=== PATIENT | male | born 2000 | race Caucasian/White ===

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

== ENCOUNTER 2022-04-12 16:17 | Emergency (ER) | payer OTHER ==
[2022-04-12 16:25] VITALS: TEMP 98.4
[2022-04-12] MEDS ORDERED: ONDANSETRON ODT 4 MG TAB PO STA (18:39)
[2022-04-12] MEDS ORDERED: HYDROmorphone 1 MG/ML 1 ML SYRINGE IM STA (18:39)
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
[2022-04-12 19:37] VITALS: BP 121/72; PULSE 78; RESP 16
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
[2022-04-12] MEDS ORDERED: ACET/COD 300 MG/30 MG STARTER PACK 6 TAB BTL PO STA (20:47)
== END 2022-04-12 20:59 | disposition home or self-care (01) ==
LOC: EC 16:17
DX: S22.080A Wedge compression fracture of T11-T12 vertebra, initial encounter for closed fracture (principal); V18.0XXA Pedal cycle driver injured in noncollision transport accident in nontraffic accident, initial encounter
CPT/HCPCS: 72128; 99284; 96372; J1170